=== PATIENT | male | born 1990 ===

== ENCOUNTER 2017-01-23 13:49 | Emergency (ER) | payer SELFPAY ==
[2017-01-23 13:49] VITALS: BMI 24.4
[2017-01-23 13:59] VITALS: BP 94/65; PULSE 71; RESP 18; TEMP 98.6; O2SAT 100
--- NOTE | 2017-01-23 14:21 | C.PDOC ---
History Of Present Illness 26 year old patient presents to the ED requesting a detox from Xanax, Oxycodone , and heroin. Patient admits his last use was last night. He denies any other drug use, overdose, homicidal or suicidal ideation. REQUESTING XANAX, OXY AND HEROIN DETOX. LAST USE LAST NIGHT. DENIES OTHER DRUG USE. DENIES OVERDOSE OR SUICIDAL IDEATION. EXAM NEG Time Seen by Provider: 01/23/17 14:09 Chief Complaint (Nursing): Substance Abuse History Per: Patient History/Exam Limitations: no limitations Onset/Duration Of Symptoms: Other Modifying Factor(s): None Severity: None Pain Scale Rating Of: 0 Recent travel outside of the [place]: No Past Medical History Reviewed: Historical Data, Nursing Documentation, Vital Signs Vital Signs: Last Vital Signs Temp 98.6 F 01/23/17 13:57 Pulse 71 01/23/17 13:57 Resp 18 01/23/17 14:34 BP 94/65 L 01/23/17 13:57 Pulse Ox 100 01/23/17 14:21 Surgical History: Appendectomy Family History: States: Unknown Family Hx - Social History Hx Alcohol Use: Yes Hx Substance Use: Yes (HEROIN) - Immunization History Hx Influenza Vaccination: No Hx Pneumococcal Vaccination: No Review Of Systems Except As Marked, All Systems Reviewed And Found Negative. Cardiovascular: Negative for: Chest Pain Respiratory: Negative for: Shortness of Breath Gastrointestinal: Negative for: Nausea, Vomiting Neurological: Negative for: Dizziness Psych: Negative for: Suicidal ideation Physical Exam - Physical Exam Appears: Non-toxic, No Acute Distress Skin: Warm, Dry Head: Atraumatic, Normacephalic Neck: Normal ROM, Supple Chest: Symmetrical Cardiovascular: Rhythm Regular Respiratory: No Accessory Muscle Use Extremity: Normal ROM Neurological/Psych: Oriented x3 Gait: Steady ED Course And Treatment O2 Sat by Pulse Oximetry: 100 (room air) Pulse Ox Interpretation: Normal - Physician Consult Information Time Consulting Physician Contacted: 14:21 Outcome Of Conversation: D/W CRISIS NO BED AVAIL Disposition Counseled Patient/Family Regarding: Diagnosis, Need For Followup - Disposition Referrals: [email or web address],detox [Other] Disposition: HOME/ ROUTINE Disposition Time: 14:20 Condition: GOOD Additional Instructions: call prescreen for detox Instructions: Polysubstance Abuse (ED) - Clinical Impression Clinical Impression: Polysubstance abuse - Scribe Statement The provider has reviewed the documentation as recorded by the Scribliz Shin Provider Attestation: All medical record entries made by the Florentinoibliz were at my direction and personally dictated by me. I have reviewed the chart and agree that the record accurately reflects my personal performance of the history, physical exam, medical decision making, and the department course for this patient. I have also personally directed, reviewed, and agree with the discharge instructions and disposition.
== END 2017-01-23 14:35 | disposition home or self-care (01) ==
LOC: C.ER 13:49
DX: F19.10 Other psychoactive substance abuse, uncomplicated (principal)

== ENCOUNTER 2017-01-23 14:44 | Emergency (ER) | payer SELFPAY ==
[2017-01-23 14:44] VITALS: BMI 24.4
[2017-01-23 15:16] VITALS: BP 108/73; PULSE 82; RESP 20; TEMP 98.7; O2SAT 100
--- NOTE | 2017-01-23 15:41 | C.PDOC ---
History Of Present Illness Patient with a history of narcotic abuse was seen here earlier requesting detox. There are no beds available at this time. He last used this morning. He is having generalized abdominal pain with nausea and diarrhea. He has detoxed himself several times in the past but states that after several days he finds he needs to use again. He has not been able to stay clean for more than 2-3 weeks. He is not currently vomiting and is able to tolerate fluids and food. He states that he is afraid of the discomfort he knows he is going to feel. Time Seen by Provider: 01/23/17 15:22 Chief Complaint (Nursing): GI Problem History Per: Patient History/Exam Limitations: no limitations Associated Symptoms: Nausea, Diarrhea Past Medical History Vital Signs: Last Vital Signs Temp 98.7 F 01/23/17 15:14 Pulse 82 01/23/17 15:14 Resp 20 01/23/17 15:14 BP 108/73 01/23/17 15:14 Pulse Ox 100 01/23/17 15:14 - Medical History PMH: No Chronic Diseases Surgical History: Appendectomy Family History: States: No Known Family Hx - Social History Hx Tobacco Use: No Hx Alcohol Use: Yes Hx Substance Use: Yes (HEROIN) - Immunization History Hx Influenza Vaccination: No Hx Pneumococcal Vaccination: No Review Of Systems Except As Marked, All Systems Reviewed And Found Negative. Gastrointestinal: Positive for: Nausea, Diarrhea Physical Exam - Physical Exam Appears: Well, No Acute Distress Skin: Normal Color, Warm, Dry, No Diaphoretic Head: Atraumatic Eye(s): bilateral: Normal Inspection, PERRL, EOMI Nose: Normal Oral Mucosa: Moist Neck: Normal ROM Cardiovascular: Rhythm Regular, No Murmur Respiratory: Normal Breath Sounds Gastrointestinal/Abdominal: Normal Exam, Bowel Sounds (normal), Soft, No Tenderness Back: Normal Inspection Neurological/Psych: Oriented x3, Normal Speech, Normal Cognition ED Course And Treatment O2 Sat by Pulse Oximetry: 100 Medical Decision Making Medical Decision Making: Patient advised to follow up as an out patient with a rehab program like [facility] in [place]. He was also advised to attend AA meetings daily. Disposition Counseled Patient/Family Regarding: Diagnosis, Need For Followup, Rx Given - Disposition Referrals: Alcoholics Anonymous [Outside] Disposition: HOME/ ROUTINE Disposition Time: 15:44 Condition: STABLE Additional Instructions: [facility] Address: [facility] [address], [place] [address] Prescriptions: Ondansetron ODT [Zofran ODT] 4 mg PO QID PRN #20 odt PRN Reason: Nausea/Vomiting Instructions: Opioid Withdrawal (ED) - Clinical Impression Clinical Impression: Opiate abuse, continuous
== END 2017-01-23 15:58 | disposition home or self-care (01) ==
LOC: C.ER 14:44
DX: F11.10 Opioid abuse, uncomplicated (principal)